=== PATIENT | male | born 1950 | race Caucasian/White ===

== ENCOUNTER → 2017-08-16 | Outpatient (CLI) | payer BC ==
--- NOTE | 2017-08-16 15:06 | CONS ---
CONSULTATION DATE OF SERVICE: 08/16/2017 A 66-year-old gentleman who has been [facility]uated [facility] for obstructive sleep apnea-hypopnea syndrome. Patient was diagnosed with obstructive sleep apnea- hypopnea syndrome about 15 years ago. Last sleep study done more than 10 years ago. He continued to use his CPAP equipment every night. Pressure on his machine is 8 cm of water. Patient's sleep schedule from 11 - 12 midnight until 8 - 9:30 am. No problems with falling asleep. No TV in bedroom. Patient wakes up from sleep once with nocturia. No history of hypnagogic hallucinations, sleep paralysis or cataplexy. He has taken 1 nap a day around 5 - 6 pm. [place] Sleepiness Scale increased to 10. MEDICATIONS: Cozaar, Zoloft, aspirin, testosterone cream. PAST MEDICAL HISTORY: Hypertension, depression. PAST SURGICAL HISTORY: Rhinoplasty, cholecystectomy, bilateral knee arthroscopic surgery. SOCIAL HISTORY: Positive for smoking in the past, quit about 15 years ago. Alcohol consumption none at the present time. FAMILY HISTORY: Diabetes, cancer. PHYSICAL EXAM: A 66-year-old gentleman without distress. BP 117/79, HR 82, RR 16, height 6, 4, weight 260, BMI 31.6, temperature 99.3, oxygen saturation at room air 95%. OROPHARYNX: Moderately low position of soft palate. Short distance between soft palate and posterior pharyngeal wall. Some restriction of nasal breathing. ABDOMEN: Obese. EXTREMITIES No clubbing or cyanosis. COMPLIANCE LEAD Awake, alert, and oriented X3. Cranial nerves 2 to 7 intact. There is no fasciculation or atrophy. noted. No focal deficits observed. IMPRESSION: 1. Obstructive sleep apnea-hypopnea syndrome for 15 years, short distance between soft palate and pharyngeal wall, restriction of nasal breathing. Wide neck, 18 inches in circumference. Patient is using his CPAP equipment every night for the whole night, but still has sleepiness on CPAP, taking naps. [place] Sleepiness Scale increased to 10. 2. Obesity, body mass index 31.6. 3. Hypertension. 4. Depression. 5. Status post rhinoplasty. 6. Status post cholecystectomy. 7. Status post bilateral arthroscopic knee surgery. PLAN: 1. Repeat CPAP titration for evaluation of effective CPAP pressure at the present time. 2. Losing weight. 3. Sleep hygiene with regular time in bed for at least 8 hours. 4. No driving if feeling any sleepiness. 5. Prescription for all necessary CPAP supplies including mask, tube, filters. Thank you very much for allowing me to participate in the management of your patient. Sincerely, Jese Galvez MD, PhD, FAASM Diplomat of [employer] Reclamation Worker of [facility] [place] [facility]ODL / RM: [id number] /
== END | disposition home or self-care (01) ==
LOC: SLEEP 13:16
PROVIDERS: ATTEND Internal Medicine
DX: G47.33 Obstructive sleep apnea (adult) (pediatric) (principal); E66.9 Obesity, unspecified; I10 Essential (primary) hypertension; F32.9 Major depressive disorder, single episode, unspecified; Z96.653 Presence of artificial knee joint, bilateral; Z90.49 Acquired absence of other specified parts of digestive tract; Z98.890 Other specified postprocedural states; Z68.31 Body mass index [BMI] 31.0-31.9, adult; Z99.89 Dependence on other enabling machines and devices; Z87.891 Personal history of nicotine dependence; Z79.899 Other long term (current) drug therapy; Z79.82 Long term (current) use of aspirin
CPT/HCPCS: 99211

== ENCOUNTER → 2017-11-29 | Outpatient (CLI) | payer MEDICARE, BC ==
--- NOTE | 2017-11-29 11:33 | PN ---
PROGRESS NOTE DATE OF SERVICE: 11/29/2017. A 67-year-old gentleman who has been followed in the [facility] for treatment of obstructive sleep apnea-hypopnea syndrome. Recently patient had CPAP titration and receive new CPAP unit today since his first visit with a new CPAP unit. The patient is happy with the new unit works well. No problem with the usage. No problem during the sleep. Previously, patient had some leg movements at night. Clinically, he does not complain on any problem related to the legs. Occasionally, he may have some leg movements. [place] Sleepiness Scale is 12. MEDICATIONS: Cozaar, Zoloft, fostering testosterone cream. I checked the patient. I CPAP unit CPAP pressure is 8 cm of water. Usage is 100% of the time more than 4 hours, average 10 hours. Leak is 11 L/minute which is acceptable. Apnea-hypopnea index only 0.7, which is perfect. . PHYSICAL EXAM: Patient in no distress BP 100/73, HR 75, RR 16, weight 266.8, temp 98.0, oxygen saturation room air 97% room oropharynx extremely low position of soft palate. ABDOMEN: Obese under physical exam normal just: \ IMPRESSION: 1. Obstructive sleep apnea-hypopnea syndrome. The patient demonstrated 100% compliance with treatment benefitting from treatment and in part when I talk about the reading from his machine I see I think I gave warrants admission or any injury to the eye severe periodic limb movements during titration 3 obesity 4. Hypertension 5. Depression 6. Status post rhinoplasty 7. post bilateral arthroscopic knee surgery. PLAN: 1. Patient will continue to use CPAP equipment every night for the whole night 2. Patient was fitted with a different full-face mask Air Fit at 20 light size and the patient likes this mask 3. I discussed with the patient possibility to use pharmacotherapy for periodic limb movements at the present time patient preferred not to do it. We could consider that in the future if he will have problems with more sleepiness during the day or more problems with sleep at night related to limb movements. 2. Losing weight. 3. No driving if feeling any sleepiness. Thank you very much for allowing me to participate in the management of your patient. Sincerely, Jese Galvez MD, PhD, FAASM Diplomat of [employer] [employer] [place] [employer] Sales Ledger Administrator of [facility] [place] [facility] / IJN: [id number] /
== END | disposition home or self-care (01) ==
LOC: SLEEP 10:20
PROVIDERS: ATTEND Internal Medicine
DX: G47.33 Obstructive sleep apnea (adult) (pediatric) (principal); G47.61 Periodic limb movement disorder; E66.9 Obesity, unspecified; I10 Essential (primary) hypertension; F32.9 Major depressive disorder, single episode, unspecified; Z98.890 Other specified postprocedural states; Z79.899 Other long term (current) drug therapy; Z99.89 Dependence on other enabling machines and devices

== ENCOUNTER → 2019-05-13 | Outpatient (CLI) | payer MEDICARE, BC ==
--- NOTE | 2019-05-13 14:48 | XR ---
EXAMINATION TYPE: XR chest 2V DATE OF EXAM: 05/13/2019 COMPARISON: Prior chest x-ray 01/01/2017 HISTORY: Congestion, acute upper respiratory infection TECHNIQUE: Frontal and lateral views of the chest are obtained. FINDINGS: There is no focal air space opacity, pleural effusion, or pneumothorax seen. Some minimal basilar subsegmental atelectatic changes are noted at the left lung base versus scarring. The cardiac silhouette size is within normal limits. The osseous structures are intact, thoracic spondylosis i s noted. IMPRESSION: Some minimal scarring or basilar atelectasis suspected.
--- NOTE | 2019-05-13 14:50 | XR ---
Sinus HISTORY: Congestion, acute upper respiratory infection 4 views of the sinuses Paranasal sinuses are well aerated. There is no evident air-fluid level. Orbits are intact. Bone mine ralization is normal. IMPRESSION: Correlate for point tenderness to assess for sinusitis, sinus CT may be of increased sens itivity.
== END | disposition home or self-care (01) ==
LOC: RADXRMAIN 10:23
PROVIDERS: ATTEND Internal Medicine
DX: J06.9 Acute upper respiratory infection, unspecified (principal)
CPT/HCPCS: 70220; 71046